=== PATIENT | female | born 1955 | race Caucasian/White ===

== ENCOUNTER 2025-01-25 10:02 | Day surgery (SDC) | payer MEDICARE, MEDICAID ==
[~2025-01-25] VITALS: Ht 162.6 cm; Wt 118.7 kg
[2025-01-25] VITALS (9 sets, daily range): BP systolic 125–171; BP diastolic 53–79; PULSE 53–62; RESP 16–26; TEMP 97.7; O2SAT 91–97
[~2025-01-25 10:02] MED LIST: ACET-1025 PO; ASCO100031 PO; LACT1CAP65 PO; LISI20TA28 PO; METO-411 PO
[2025-01-25] MEDS: LORazepam 0.5 MG tablet PO PRN (11:09)
[2025-01-25] MEDS: diphenhydrAMINE 25mg capsule PO PRN (11:09)
[2025-01-25] MEDS: normal saline 1,000 ML IV SCH (11:11)
--- NOTE | 2025-01-25 11:16 | ELECTROCARDIOGRAPH REPORT ---
[facility] Test Date: 2025-01-25 Test Time: 11:12:27 Pat Name: KODY HILLIARD Department: [facility] Patient ID: [facility]-[id number] Room: Gender: F International [employer]: OTNA : 1955 Requested By: ROCCO TIDWELL Order Number: [id number] Reading MD: Measurements Intervals [place] Rate: 60 P: -27 MD: 216 QRS: -40 QRSD: 106 T: 112 QT: 468 QTc: 468 Interpretive Statements Sinus rhythm Borderline prolonged MD interval Left anterior fascicular block Abnormal R-wave progression, late transition LVH with secondary repolarization abnormality Baseline wander in lead(s) V6 Please click the below link to view image of tracing.
[2025-01-25] MEDS ORDERED: fentaNYL/PF 50MCG/1 ML 2ML syringe ONE (12:46)
[2025-01-25] MEDS ORDERED: LIDOcaine 1% (10mg/ml) 2ml vial ONE (12:46)
[2025-01-25] MEDS ORDERED: midazolam 1 mg/ML 2ml injection ONE (12:46)
[2025-01-25] MEDS ORDERED: verapamil 2.5 mg/ml inj IV ONE (12:46)
[2025-01-25] MEDS ORDERED: heparin 1,000unit/ml 10ml vial 10 ML ONE (12:47)
[2025-01-25] MEDS ORDERED: iohexol 350MG/ML 100ml bottle IV ONE (12:47)
[2025-01-25] MEDS ORDERED: nitroGLYCERIN 500mcg/5mL D5W 5 ML IV ONE (12:50)
--- NOTE | 2025-01-25 14:52 | CARDIAC CATH REPORT ---
Cardiac Cath Report Providers to CC CC: CHITO TIDWELL MD Procedure Comments: 1. Left Heart Catheterization 2. Selective Coronary Angiography 3. Right Radial Artery Access Brief History/Indications: 69yo woman with HTN, HLD, Obesity found to have significant anterior/anterolateral ischemia on stress testing prior to knee surgery. Techniques: After informed consent was obtained, the patient was brought to the cardiac catheterization laboratory and prepped and draped in usual sterile fashion for left heart catheterization and other procedures mentioned above. The right wrist was anesthetized with 1% Lidocaine and the right radial artery accessed via the Seldinger technique after which a 6Fr sheath was placed. Through this a TIG was used to engage the left ventricle, the left coronary artery, and the right coronary artery. At the conclusion of the case the sheath was removed and hemostasis obtained with a VascBand. Findings Findings: HEMODYNAMICS: See procedure log CORONARY ARTERIES: Rt Dominant LMCA: Luminal Irregularities LAD: Mid 80% stenosis at the first diagonal followed by an additional 60-70% stenosis Dx: Luminal Irregularities LCx: Luminal Irregularities OM1: Luminal Irregularities RCA: Luminal Irregularities PDA: Luminal Irregularities PL: Luminal Irregularities Results Results: 1. Significant CAD involving the mid-LAD 2. RRA Access, closed with VascBand 3. Had extensive discussion with patient prior to angiography regarding proceeding with procedure vs delaying and desensitization. She preferred to continue RECOMMENDATIONS: 1. Recommend ASA Desensitization, then referral for PCI of the LAD 2. Cont uptitration of max-tolerated GDMT ROCCO TIDWELL MD Jan 25, 2025 14:52
== END 2025-01-25 15:50 | disposition home or self-care (01) ==
LOC: SSTAY O 10:02
PROVIDERS: ATTEND Student in an Organized Health Care Education/Training Program
DX: R94.39 Abnormal result of other cardiovascular function study (principal); I25.10 Atherosclerotic heart disease of native coronary artery without angina pectoris; I10 Essential (primary) hypertension; E78.5 Hyperlipidemia, unspecified; Z88.6 Allergy status to analgesic agent; Z88.8 Allergy status to other drugs, medicaments and biological substances; Z79.899 Other long term (current) drug therapy
CPT/HCPCS: 93005; 93458; 99152; A6258; A6402; C1894; J1644; J2003; J2250; J3010; J3490; J7030; Q0163; Q9967; Z7610

== ENCOUNTER 2025-05-10 11:04 | Day surgery (SDC) | payer MEDICARE, MEDICAID ==
[2025-05-10] VITALS (8 sets, daily range): BP systolic 134–161; BP diastolic 65–74; PULSE 52–61; RESP 14–16; TEMP 98.1; O2SAT 92–97
[~2025-05-10] VITALS: Ht 162.6 cm; Wt 121.4 kg
[~2025-05-10 11:04] MED LIST changes: +AMLO5TAB16 PO; -ASCO100031 PO; +ASCO10004 PO; +ASPI81TA52 PO; +FENO160T PO; -LACT1CAP65 PO; +MULT-1085 PO; +ROSU10TA98 PO
--- NOTE | 2025-05-10 11:45 | ELECTROCARDIOGRAPH REPORT ---
[facility] Test Date: 2025-05-10 Test Time: 11:42:58 Pat Name: KODY HILLIARD Department: [facility] Patient ID: [facility]-[id number] Room: Gender: F Paper Machine Tender: : 1955 Requested By: ROCCO TIDWELL Order Number: [id number] Reading MD: Dr. ZOYA Olivier Measurements Intervals [place] Rate: 61 P: 35 OR: 211 QRS: -45 QRSD: 110 T: 98 QT: 469 QTc: 473 Interpretive Statements Sinus rhythm Left anterior fascicular block Abnormal R-wave progression, late transition LVH with secondary repolarization abnormality Baseline wander in lead(s) V1,V2 Electronically Signed On 05-10-2025 18:44:[address] ZOYA Olivier Please click the below link to view image of tracing.
[2025-05-10] MEDS ORDERED: verapamil 2.5 mg/ml inj IV ONE (12:49)
[2025-05-10] MEDS ORDERED: LIDOcaine 1% (10mg/ml) 2ml vial ONE (12:49)
[2025-05-10] MEDS ORDERED: heparin 1,000unit/ml 10ml vial 10 ML ONE (12:50)
[2025-05-10] MEDS ORDERED: midazolam 1 mg/ML 2ml injection ONE ×3 (12:50→14:51)
[2025-05-10] MEDS ORDERED: fentaNYL/PF 50MCG/1 ML 2ML syringe ONE ×2 (12:50→14:54)
[2025-05-10] MEDS ORDERED: nitroGLYCERIN 500mcg/5mL D5W 5 ML IV ONE (12:51)
[2025-05-10 13:20] LABS: MEAN PLATELET VOLUME 8.1 FL (7.4-10.4); RED CELL DISTRIBUTION WIDTH 15.4 % (11.5-14.5)
[2025-05-10 13:33] LABS: CREATININE 0.80 MG/DL (0.40-0.90); TOTAL CARBON DIOXIDE 30.8 MMOL/L (24-32); eCRCL 57 ML/MIN; eGFR 71 ML/MIN
[2025-05-10 13:38] LABS: INR 1.1 INR
[2025-05-10] MEDS ORDERED: LIDOcaine 1% 30ml preserv. free vial ONE (14:22)
[2025-05-10] MEDS ORDERED: clopidogrel 300mg tablet ONE (15:20)
[2025-05-10] MEDS ORDERED: ASPI81TA52 PO (15:51)
[2025-05-10] MEDS ORDERED: CLOP75TA34 PO (15:51)
[2025-05-10] MEDS ORDERED: ondansetron/PF 4mg/2ml inj IV PRN (16:10)
[2025-05-10] MEDS ORDERED: HYDROcodone/acetaminophen 10/325mg tab PO PRN (16:10)
[2025-05-10] MEDS ORDERED: OXAZEpam 15mg capsule PO PRN (16:10)
[2025-05-10] MEDS ORDERED: HYDROcodone/acetaminophen 5mg/325mg tablet PO PRN (16:10)
--- NOTE | 2025-05-28 20:41 | CARDIOLOGY REPORT ---
DATE OF SERVICE: 05/10/2025 DICTATING PHYSICIAN: Barbara Barros MD CARDIAC CATHETERIZATION REPORT DATE OF STUDY: 05/10/2025 PROCEDURES: 1. Selective coronary angiography. 2. Angioplasty of the left anterior descending coronary artery. 3. Angioplasty of the diagonal branch of the left anterior descending coronary artery. 4. Stenting x 1 of the left anterior descending coronary artery. 5. Conscious sedation monitoring time for 60 minutes. INDICATION: 1. High-grade stenosis. 2. Chest pain. PHYSICIAN: Barbara Barros MD DESCRIPTION OF PROCEDURE: After informed consent was obtained, the patient was brought to the lab where she was prepped and draped in the usual sterile fashion. A 6-Ind[place]ian sheath was inserted into the right radial artery. Next, using an XB LAD guiding catheter, the catheter was advanced and the left main coronary artery intubated. Selective coronary angiography of the LAD and circumflex was performed. PCI was then performed as described below. HEMODYNAMICS: For the patient's hemodynamics, please refer to the event log. FINDINGS: The left main coronary artery is a normal caliber vessel with mild luminal irregularities. The circumflex coronary artery is a medium caliber vessel with mild luminal irregularities. The left anterior descending coronary artery has a high-grade 80% stenosis immediately at the takeoff of the obtuse marginal branch and the left anterior descending coronary artery. PERCUTANEOUS CORONARY INTERVENTION: Using a 0.014 Choice PT wire, the wire was carefully navigated across the lesion. Thereafter, using a 2.5 x 12 mm Trek balloon, angioplasty of the left anterior descending coronary artery was performed. Next, using a 3.0 x 12 mm Jeffy Sawyer stent, the stent was advanced across the lesion where it was deployed. Follow-up angiography revealed excellent results in the LAD. However, no flow was noted in the diagonal branch of the LAD. The wire was then manipulated to engage the diagonal branch. This was then angioplastied with a 2.5 x 8 mm Trek balloon. Follow-up angiography revealed good results. IMPRESSION: Angioplasty/stenting of the left anterior descending artery across the diagonal branch. No flow was noted in the diagonal branch. This was then angioplastied with significant improvement and BO 3 flow. Barbara Barros MD TID: [id number] RECEIPT: [id number] /[id number]
== END 2025-05-10 17:45 | disposition home or self-care (01) ==
LOC: SSTAY O 11:04
PROVIDERS: ATTEND Student in an Organized Health Care Education/Training Program
DX: I25.10 Atherosclerotic heart disease of native coronary artery without angina pectoris (principal); I44.4 Left anterior fascicular block; I10 Essential (primary) hypertension; E78.00 Pure hypercholesterolemia, unspecified; G47.33 Obstructive sleep apnea (adult) (pediatric); Z79.82 Long term (current) use of aspirin; Z79.899 Other long term (current) drug therapy; Z88.1 Allergy status to other antibiotic agents; Z88.5 Allergy status to narcotic agent; Z88.6 Allergy status to analgesic agent; Z88.8 Allergy status to other drugs, medicaments and biological substances
CPT/HCPCS: 36415; 80048; 85025; 85610; 92921; 93005; 93454; 99152; 99153; A6258; A6402; C1725; C1769; C1874; C1894; C9600; J1644; J2003; J2250; J3010; J3490; J7030; Q0163; Q9967; Z7610